=== PATIENT | male | born 1995 | race Caucasian/White ===

== ENCOUNTER 2016-12-12 20:51 | Emergency (ER) | payer OTHER ==
[2016-12-12 20:58] VITALS: BP 137/74
--- NOTE | 2016-12-12 21:47 | RAD ---
INDICATION: Left hand pain. TECHNIQUE: 4 views of the left hand were obtained. FINDINGS: The bones are in normal alignment. No fracture is seen. Joint spaces appear maintained. IMPRESSION: NO EVIDENCE FOR FRACTURE.
--- NOTE | 2016-12-12 22:02 | ED ---
Upper Extremity Pain - HPI Summary HPI Summary: 21M presents with abrasion to left hand and swelling s/p cow pulled him yesterday. He was leading a cow and had a rope on the middle of his left hand when the cough started to pull and didn't stop till it ran into a wall. He denies any other trauma besides the hand injury. He states today the swelling in the hand has increased and the pain is greatest along the ulnar aspect of his hand. He has not taken anything for his pain. He denies any numbness or tingling. He is left handed. - History of Current Complaint Chief Complaint: EDExtremityUpper Stated Complaint: HAND INJURY Time Seen by Provider: 12/12/16 21:09 - Allergies/Home Medications Allergies/Adverse Reactions: Allergies Allergy/AdvReac Type Severity Reaction Status Date / Time No Known Allergies Allergy Verified 12/12/16 20:55 PMH/Surg Hx/FS Hx/Imm Hx Endocrine/Hematology History: Denies: Hx Anticoagulant Therapy Cardiovascular History: Denies: Hx Hypertension Infectious Disease History: No Infectious Disease History: Denies: Traveled Outside the [place] in Last 30 Days - Family History Known Family History: Positive: Cardiac Disease - Social History Alcohol Use: None Substance Use Type: Reports: None Hx Tobacco Use: Yes Smoking Status (MU): Light Every Day Tobacco Smoker Review of Systems Negative: Fever Negative: Chest Pain Negative: Shortness Of Breath Positive: Myalgia - left hand, Edema - left hand All Other Systems Reviewed And Are Negative: Yes Physical Exam Triage Information Reviewed: Yes Vital Signs On Initial Exam: Initial Vitals Temp Pulse Resp BP Pulse Ox 98.9 F 87 18 137/74 100 12/12/16 20:57 12/12/16 20:57 12/12/16 20:57 12/12/16 20:57 12/12/16 20:57 Vital Signs Reviewed: Yes Appearance: Positive: Well-Appearing Skin: Positive: Warm, Dry, Other - 3 cm by 3cm abrasion noted to palm of left hand near 5ht metacarpel Head/Face: Positive: Normal Head/Face Inspection Eyes: Positive: Normal, Conjunctiva Clear Respiratory/Lung Sounds: Positive: Clear to Auscultation, Breath Sounds Present Cardiovascular: Positive: Normal, RRR Musculoskeletal: Positive: Strength/ROM Intact - of left hand, Other - tender along 5th metatarsal with mild edema present, good pulse, capillary refill < 2secs, neg snuff box tenderness Diagnostics - Vital Signs Vital Signs Temp Pulse Resp BP Pulse Ox 12/12/16 20:57 98.9 F 87 18 137/74 100 - Laboratory Lab Statement: Any lab studies that have been ordered have been reviewed, and results considered in the medical decision making process. - Radiology hand Xray Interpretation: No Acute Changes Radiology Interpretation Completed By: Radiologist Course/Dx - Course Course Of Treatment: 21M presents with rope burn yesterday and pain near 5th metacarpel s/p cow pulled him. is left handed. mild edema noted on left 5th metacarpel. abrasion also present. no step off felt. xray normal. covered abrasion. patient understands and agrees with plan - Diagnoses Differential Diagnosis/HQI/PQRI: Positive: Fracture (Closed), Strain, Sprain Provider Diagnoses: Left hand pain Discharge - Discharge Plan Condition: Good Disposition: HOME Patient Education Materials: Crush Injury (ED) Referrals: Adair FLORESPGina [Primary Care Provider] - Additional Instructions: Place ice on area Take Tylenol or ibuprofen every [address] neosporin on abrasion Follow up with primary if no improvement in 5 days Return to ED if develop any new or worsening symptoms
== END 2016-12-12 22:13 | disposition home or self-care (01) ==
LOC: ED 20:51
DX: M79.642 Pain in left hand (principal)
CPT/HCPCS: 99281

== ENCOUNTER 2019-05-03 10:18 | Emergency (ER) | payer OTHER ==
[2019-05-03 10:37] VITALS: BP 117/73
--- NOTE | 2019-05-03 11:24 | UC ---
Lower Extremity/Ankle HPI - HPI Summary HPI Summary: patient reports R great toe pain. started 2 day sago after cow stepped on toe has remained ambulatory - but very painful, swelling, bruising - History of Current Complaint Chief Complaint: UCLowerExtremity Stated Complaint: R FOOT INJURY Time Seen by Provider: 05/03/19 11:03 Hx Obtained From: Patient Onset/Duration: Sudden Onset Severity Initially: Mild Pain Intensity: 0 Aggravating Factor(s): Standing, Ambulation Alleviating Factor(s): Rest Able to Bear Weight: Yes - Allergies/Home Medications Allergies/Adverse Reactions: Allergies Allergy/AdvReac Type Severity Reaction Status Date / Time No Known Allergies Allergy Verified 05/03/19 10:31 Home Medications: Home Medications NK [No Home Medications Reported] 05/03/19 [History Confirmed 05/03/19] PMH/Surg Hx/FS Hx/Imm Hx Previously Healthy: Yes Other History Of: Negative For: Anticoagulant Therapy - Surgical History Surgical History: Yes Surgery Procedure, Year, and Place: t&a as a teen - Family History Known Family History: Positive: Cardiac Disease - Social History Occupation: Employed Full-time - [employer] Lives: With Family Alcohol Use: None Substance Use Type: None Smoking Status (MU): Light Every Day Tobacco Smoker Amount Used/How Often: 1/2 PPD Cessation Counseling: Patient Advised to Stop Review of Systems All Other Systems Reviewed And Are Negative: Yes Constitutional: Positive: Negative Respiratory: Positive: Negative Cardiovascular: Positive: Negative Neurovascular: Positive: Negative Musculoskeletal: Positive: Other: - R great toe is swollen and ecchymotic, decreased ROM. nail intact Neurological: Positive: Negative Psychological: Positive: Negative Is Patient Immunocompromised?: No Physical Exam Triage Information Reviewed: Yes Appearance: Well-Appearing, No Pain Distress, Well-Nourished Vital Signs: Initial Vital Signs Temp 98 F 05/03/19 10:31 Pulse 75 05/03/19 10:31 Resp 18 05/03/19 10:31 BP 117/73 05/03/19 10:31 Pulse Ox 100 05/03/19 10:31 Vital Signs Reviewed: Yes Respiratory Exam: Normal Respiratory: Positive: Lungs clear Cardiovascular Exam: Normal Cardiovascular: Positive: RRR Musculoskeletal: Positive: ROM Limited @ - R great toe Psychological Exam: Normal Skin Exam: Normal Skin: Negative: Rashes Diagnostics - Radiology No standard instances Radiology Interpretation Completed By: Radiologist - Obliquely oriented fracture of the right first phalanx with IP intra-articular extension. Lower Extremity Course/Dx - Differential Dx/Diagnosis Differential Diagnosis/HQI/PQRI: Contusion, Fracture (Closed), Sprain, Strain Provider Diagnosis: Fracture of toe of right foot Discharge ED - Sign-Out/Discharge Documenting (check all that apply): Patient Departure All imaging exams completed and their final reports reviewed: Yes - minimally displaced Obliquely oriented fracture of the right first phalanx with IP intra- articular extension. - Discharge Plan Condition: Stable Disposition: HOME Patient Education Materials: Toe Fracture (ED) Referrals: No Primary Care Phys,NOPCP [Primary Care Provider] - Cindy Baird MD [Medical Doctor] - Additional Instructions: ice and elevate foot use post-op shoe when standing and walking make sure to call orthopedics tomorrow to get appointment use ibuprofen 600mg every 6 -8 hours as needed for pain (take with food) - Billing Disposition and Condition Condition: STABLE Disposition: Home - Attestation Statements Provider Attestation: I was available for consult. This patient was seen by the ALEXANDER. The patient was not presented to , seen by or examined by -Andre Sow MD
== END 2019-05-03 12:30 | disposition home or self-care (01) ==
LOC: UCEAST 10:18
DX: S92.401A Displaced unspecified fracture of right great toe, initial encounter for closed fracture (principal); W55.22XA Struck by cow, initial encounter; Y93.K9 Activity, other involving animal care; Y92.9 Unspecified place or not applicable; Y99.0 Civilian activity done for income or pay; F17.210 Nicotine dependence, cigarettes, uncomplicated
CPT/HCPCS: 99212; G0463